=== PATIENT | female | born 1975 | race American Indian/Alaskan Native ===

== ENCOUNTER 2019-01-26 10:15 | Outpatient (CLI) | payer BC ==
--- NOTE | 2019-01-26 13:06 | Mammography Report ---
BILATERAL DIGITAL DIAGNOSTIC MAMMOGRAM and RIGHT BREAST ULTRASOUND: 01/26/19 10:15:00 CLINICAL: Recalled for bilateral asymmetries. COMPARISON:09/08/18 screening mammogram and right mammogram and right breast ultrasound from 06/12/16 and 10/14/12. FINDINGS: Additional mammographic views of the left breast were performed and are negative.Partially circumscribed asymmetries persists in the right breast with spot compression. Ultrasound of the right breast (including all four quadrants and the retroareolar area) was performed. Numerous heterogeneous hypoechoic solid right breast masses are identified. The largest is at 1 o'clock 7 cm from the nipple and measures 3.3 x 2.1 x 3.2 cm. This mass was not described on either of the 2 previous ultrasound exams. An irregular solid heterogeneous hypoechoic mass at 1:30 o'clock 6 cm from the nipple measures 2.6 x 2.9 x 1.5 cm and this appears to correlate with a mass on the last exam described to be at 1 o'clock 4 cm from the nipple measuring 2.9 x 2.5 x 1.6 cm. An oval solid heterogeneous hypoechoic mass at 12 o'clock 6 cm from the nipple measures 1.1 x 0.5 x 0.9 cm compared to 1.0 x 0.4 x 0.9 cm on the last exam. Several additional smaller solid masses with similar morphology. IMPRESSION: Probably benign solid right breast masses and negative left breast. BI-RADS CATEGORY: 3 - - Probably Benign RECOMMENDATION: 6 month followup right mammogram and right breast ultrasound. ACR BI-RADS MAMMOGRAPHIC CODES: 0 = Needs additional imaging evaluation; 1 = Negative; 2 = Benign; 3 = Probably benign; 4 = Suspicious; 5 = Malignant; 6 = Known biopsy-proven malignancy COMMENT: 1. Dense breast tissue, i.e., adenosis, fibrocystic changes, etc., may obscure an underlying neoplasm. 2. Approximately 10% of cancers are not detected with mammography. 3. A negative mammography report should not delay biopsy if a clinically suspicious mass is present. COMMENT: Patient follow-up letters are generated via our [employer] application.
== END 2019-01-26 10:16 | disposition home or self-care (01) ==
LOC: SPVWC 10:15
PROVIDERS: ATTEND Obstetrics & Gynecology
DX: N64.89 Other specified disorders of breast (principal)
CPT/HCPCS: 77066

== ENCOUNTER 2021-12-19 10:30 | Outpatient (CLI) | payer OTHER | END 2021-12-19 10:31 | disposition home or self-care (01) | LOC: SPVWC 10:30 | PROVIDERS: ATTEND Obstetrics & Gynecology | DX: Z12.31 Encounter for screening mammogram for malignant neoplasm of breast (principal) | CPT/HCPCS: 77067 ==

== ENCOUNTER 2022-02-17 09:40 | Outpatient (CLI) | payer OTHER ==
--- NOTE | 2022-02-18 10:02 | Ultrasound Report ---
ULTRASOUND BREAST RIGHT COMPLETE, 02/17/2022 CLINICAL INFORMATION / INDICATION: 46-year-old female presents for evaluation of masses identified on recent mammogram.. TECHNIQUE: Complete sonographic evaluation of all 4 quadrants and retroareolar region was performed. COMPARISON: Prior mammograms for 2018, 12/19/2021, as well as prior right breast ultrasound 01/27/20 19 FINDINGS: Multiple benign-appearing solid masses are seen scattered throughout the right breast. All the masses correlate with benign-appearing nodularity noted mammographically and appear grossly unchanged faina red with prior ultrasound from 2019. The mass in question, based on most recent mammogram is located in the upper inner quadrant of the right breast at 1:00. This is a solid oval smoothly marginated mas s with parallel orientation, 6 cm from nipple, measuring 3.5 x 1.9 x 3.2 cm. This is essentially unch anged from measurements provided on 05/31/2019 ultrasound for the same mass. Therefore this represents a benign fibroadenoma given lack of any significant interval change since that time. IMPRESSION: No sonographic evidence of malignancy. Multiple benign-appearing solid oval breast masses are present scattered throughout the breast essentially unchanged from prior ultrasound from 2019. M ost notably, the largest mass in the upper inner quadrant of the right breast at 1:00 is grossly stab le compared with 2019 ultrasound and requires no further evaluation. All the masses appear to be bridgette gn fibroadenomas. Follow up recommendation: Routine yearly screening mammogram. BI-RADS Category 2: BENIGN. A normal or "negative" report should not preclude biopsy or follow-up of a clinically suspicious find ing. Signer Name: Dayana Hercules MD Signed: 02/18/2022 9:57 AM Workstation Name: [id number]
== END 2022-02-17 09:41 | disposition home or self-care (01) ==
LOC: US 09:40
PROVIDERS: ATTEND Obstetrics & Gynecology
DX: N63.12 Unspecified lump in the right breast, upper inner quadrant (principal)